=== PATIENT | female | born 1950 | race Caucasian/White ===

== ENCOUNTER 2021-11-22 12:28 | Emergency (ER) | payer OTHER ==
[2021-11-22 13:01] LABS: Hemoglobin 13.9 g/dL (12.0-15.5); Mean Corpuscular HGB CONC 33.7 g/dL (32.0-36.0); Mean Corpuscular Hemoglobin 31.7 pg (27.0-33.0); Mean Corpuscular Volume 94.1 fl (81.6-98.3); Mean Platelet Volume 10.7 fl (7.4-10.4); Platelet Count 217 10x3/uL (150-450); RBC Distribution Width 12.7 % (11.5-14.5); Red Blood Cell (RBC) Count 4.38 10x6/uL (3.90-5.03); White Blood Cell (WBC) Count 7.8 10x3/uL (3.5-10.5)
[2021-11-22 13:02] LABS: MDiff Complete? YES; Manual Diff?? YES
[2021-11-22 13:07] LABS: PTT 27.4 sec (22.0-33.0); Prothrombin Time 10.7 sec (9.5-12.1)
[2021-11-22 13:12] LABS: ALT (SGPT) 11 U/L (8-55); AST (SGOT) 19 U/L (5-34); Albumin 4.3 g/dL (3.4-4.8); Alkaline Phosphatase 85 U/L (40-110); Anion Gap 16 mmol/L (10-20); BUN (Urea Nitrogen) 17 mg/dL (9.8-20.1); Bilirubin, Total 0.5 mg/dL (0.2-1.2); Calc. Creatinine Clearance 0 mL/min (70-130); Calcium 9.3 mg/dL (7.8-10.44); Carbon Dioxide 24 mmol/L (23-31); Chloride 107 mmol/L (98-107); Estimated GFR 75; Globulin 2.8 g/dL (2.4-3.5); Glucose 100 mg/dL (80-115); Potassium 3.9 mmol/L (3.5-5.1); Protein, Total 7.1 g/dL (5.8-8.1); Sodium 143 mmol/L (136-145)
[2021-11-22 13:19] LABS: Eosinophils 1 % (0-10); Lymphocytes 31 % (21-51); Neutrophil 65 % (42-75); Reactive Lymphocytes 3 % (0-10)
[2021-11-22 13:20] LABS: Platelet Morphology Comment Appears Adequate
[2021-11-22] MEDS ORDERED: Ondansetron PF 4 MG/2 ML Vial ONE (14:04)
[2021-11-22] MEDS ORDERED: PROPOFOL 20 ML ONE (14:04)
[2021-11-22] MEDS ORDERED: Succinylcholine 200 MG/10 ml SYRINGE FS ONE (14:04)
[2021-11-22] MEDS ORDERED: Lidocaine 1% PF 5 ML VIAL ONE (14:04)
[2021-11-22] MEDS ORDERED: Rocuronium Bromide 10 MG/ML (10ML VIAL) ONE (14:05)
[2021-11-22] MEDS ORDERED: SUGAMMADEX SODIUM 200 MG/2 ML VIAL ONE (14:08)
[2021-11-22] MEDS ORDERED: Dexamethasone 4 mg/ml Vial ONE (14:25)
[2021-11-22 14:28] LABS: SARS-CoV-2 NAA Rapid Test Not Detected (NotDetected)
[2021-11-22] MEDS ORDERED: ePHEDrine Sulfate 50 MG/10 ML VIAL ONE (14:58)
== END 2021-11-22 14:23 | disposition admitted as inpatient to this hospital (09) ==
LOC: CSHERS 12:28
PROC: 0DC18ZZ Extirpation of Matter from Upper Esophagus, Via Natural or Artificial Opening Endoscopic (ICD-10-PCS; principal; 2021-11-22)
PROC: 0DB38ZZ Excision of Lower Esophagus, Via Natural or Artificial Opening Endoscopic (ICD-10-PCS; 2021-11-22)
PROC: 0DB18ZZ Excision of Upper Esophagus, Via Natural or Artificial Opening Endoscopic (ICD-10-PCS; 2021-11-22)
DX: T18.128A Food in esophagus causing other injury, initial encounter (principal); K20.90 Esophagitis, unspecified without bleeding; E03.9 Hypothyroidism, unspecified; Z20.822 Contact with and (suspected) exposure to COVID-19; Z79.899 Other long term (current) drug therapy; Z90.49 Acquired absence of other specified parts of digestive tract
CPT/HCPCS: 43239; 43247; 80053; 85025; 85610; 85730; 99284; U0002; 88305; J1100; J2405; J2704